=== PATIENT | male | born 1970 | race Two or more races ===

== ENCOUNTER 2022-09-13 17:14 | Emergency (ER) | payer OTHER ==
[~2022-09-13] VITALS: Ht 172.7 cm; Wt 88.9 kg
[~2022-09-13 17:14] MED LIST: CEFUROXIME500 MG PO; COZAAR25 MG; KETO10TA2 PO; METFORMIN HCL850 MG; NOVOLIN 70/30 V10 ML; SIMVASTATIN20 MG
[2022-09-13] MEDS ORDERED: LANTUS SOL100 UNIT/1 SQ (18:05)
[2022-09-13] MEDS ORDERED: XIGDUO XR 5 MG1 EAC1 PO (18:06)
[2022-09-13] MEDS ORDERED: AMLODIPINE BESY10 MG PO (18:06)
[2022-09-13] MEDS ORDERED: HUMALOG KW100 UNIT/1 SQ (18:06)
== END 2022-09-13 21:09 | disposition home or self-care (01) ==
LOC: ER 17:14
DX: M79.672 Pain in left foot (principal); E11.9 Type 2 diabetes mellitus without complications; Z79.4 Long term (current) use of insulin; Z79.84 Long term (current) use of oral hypoglycemic drugs

== ENCOUNTER 2022-10-25 11:31 | Emergency (ER) | payer OTHER ==
[~2022-10-25] VITALS: Ht 172.7 cm; Wt 88.5 kg
[~2022-10-25 11:31] MED LIST changes: +AMLODIPINE BESY10 MG PO; +HUMALOG KW100 UNIT/1 SQ; +LANTUS SOL100 UNIT/1 SQ; +XIGDUO XR 5 MG1 EAC1 PO
[2022-10-25] MEDS ORDERED: NORFLEX100MG PO (15:11)
[2022-10-25] MEDS ORDERED: KETO10TA2 PO (15:11)
== END 2022-10-25 15:35 | disposition home or self-care (01) ==
LOC: ER 11:31
DX: M25.561 Pain in right knee (principal)

== ENCOUNTER 2022-10-26 17:14 | Outpatient (CLI) | payer OTHER ==
[~2022-10-26 17:14] MED LIST changes: +NORFLEX100MG PO
== END 2022-10-26 17:17 | disposition home or self-care (01) ==
LOC: LAB 17:14
PROVIDERS: ATTEND Orthopaedic Surgery
DX: M25.461 Effusion, right knee (principal)

== ENCOUNTER 2025-03-19 15:05 | Emergency (ER) | payer OTHER ==
[~2025-03-19] VITALS: Ht 172.7 cm; Wt 94.8 kg
[2025-03-19] MEDS ORDERED: ATORVASTATIN CA20 MG PO (15:36)
[2025-03-19] MEDS ORDERED: KETOROLAC TROMETHAMINE 15 MG VIAL IM STA (15:51)
[2025-03-19] MEDS ORDERED: DEXAMETHASONE SODIUM PHOSPHATE 4 MG/ML VIAL IM STA (15:51)
[2025-03-19] MEDS ORDERED: KETOROLAC TROMETHAMINE 60 MG VIAL IM ONE (16:47)
[2025-03-19] MEDS ORDERED: DEXAMETHASONE SODIUM PHOSPHATE 4 MG/ML VIAL ONE (16:47)
[2025-03-19 17:20] LABS: BASO % 0.3 % (0.1-1.2); EOS # 0.21 (0.04-0.54); EOS % 1.9 % (0.7-7.0); HEMATOCRIT 42.2 % (40.1-51.0); HEMOGLOBIN 13.8 g/dL (13.7-17.5); LYMPH # 2.46 (1.18-3.74); LYMPH % 22.5 % (19.3-53.1); MEAN CORPUSCULAR HEMOGLOBIN 27.7 pg (25.6-32.2); MONO # 1.23 (0.24-0.82); MONO % 11.3 % (4.7-12.5); NEUT # 6.94 (1.56-6.13); NEUT % 63.5 % (34.0-71.1); PLATELET COUNT 247 K/uL (163-369); RED BLOOD COUNT 4.99 M/uL (4.63-6.08); RED CELL DISTRIBUTION WIDTH 13.3 % (11.6-14.4)
[2025-03-19] MEDS ORDERED: COLCHICINE0.6 MG PO (18:24)
[2025-03-19] MEDS ORDERED: CEFADROXIL500 MG PO (18:24)
[2025-03-19] MEDS ORDERED: DICLOFENAC SODI75 MG PO (18:24)
== END 2025-03-19 18:38 | disposition home or self-care (01) ==
LOC: ER 15:13
PROVIDERS: General Practice
DX: M10.9 Gout, unspecified (principal); L03.115 Cellulitis of right lower limb; E11.9 Type 2 diabetes mellitus without complications; Z79.4 Long term (current) use of insulin